=== PATIENT | female | born 1945 | race Caucasian/White ===

== ENCOUNTER → 2019-05-12 | Day surgery (SDC) | payer OTHER ==
[2019-05-10 13:23] LABS: BASOPHILS % 0.4 % (0.0-1.0); EOSINOPHILS # (AUTO) 0.3 (0.0-0.4); EOSINOPHILS % 3.7 % (0.0-6.0); HEMATOCRIT 44.1 % (34.2-44.1); HEMOGLOBIN 13.9 g/dL (12.0-16.0); LYMPHOCYTES # (AUTO) 3.5 (1.0-3.2); LYMPHOCYTES % 41.2 % (18.0-39.1); MEAN CORPUSCULAR HEMOGLOBIN 29.2 pg (28-32); MEAN CORPUSCULAR HGB CONC 31.5 g/dL (31-35); MEAN CORPUSCULAR VOLUME 92.6 fL (81-99); MONOCYTES # (AUTO) 0.7 (0.2-0.8); MONOCYTES % 8.6 % (4.4-11.3); NEUTROPHILS # (AUTO) 3.8 (2.1-6.9); NEUTROPHILS % 45.7 % (38.7-80.0); PLATELET COUNT 211 x10e3/uL (140-360); RED BLOOD COUNT 4.76 x10e6/uL (3.6-5.1); RED CELL DISTRIBUTION WIDTH 15.6 % (11.7-14.4)
[~2019-05-12] MED LIST: DICLOFENAC TOP; FUROSEMIDE40 MG PO; LEVOTHYROXINE112 MCG PO; LIDOCAINE HCL 2% LOCAL INJ 5 ML SDV VIAL INJ ONE; MIDAZOLAM HCL 2 MG/2 ML VIAL ONE; PROPOFOL IV EMULSION 10 MG/ML 20 ML VIAL ONE; TIZANIDINE HCL4 M1 PO
--- OUTSIDE RECORDS SUMMARY | 2019-05-12 07:59 | XMS REPORT ---
Author Author [facility] Address Unknown Phone Unavailable Care Team Providers Care Rust Proofer Name Role Phone Unavailable Unavailable Payers Payer Name Policy Type Policy Number Effective Date Expiration Date Problems This patient has no known problems. Allergies, Adverse Reactions, Alerts This patient has no known allergies or adverse reactions. Medications This patient has no known medications.
--- OUTSIDE RECORDS SUMMARY | 2019-05-12 07:59 | XMS REPORT ---
Author Author [place] Organization [employer] Address Unknown Phone Unavailable Care Team Providers Care Protective Service Specialist Name Role Phone [place] [facility] Unavailable Allergies, Adverse Reactions, Alerts Substance Reaction Event Type Penicillin tingling in hands Drug Allergy Encounters Encounter Location Date joint pain [facility] Jul 23, 2016 Follow up-[facility] Aug 06, 2016 Problems Problem Type Condition ICD-9 Code Onset Dates Condition Status Assessment Osteoarthritis involving multiple joints on both sides of body M15.9 Active Assessment Pain, joint, multiple sites M25.50 Active Problem Osteoarthritis involving multiple joints on both sides of body M15.9 Active Assessment Counseling NOS Z71.9 Active Medications Medication Code System Code Instructions Start Date End Date Status Dosage Advil MEDISPAN [address]-69 200 MG Orally every 6 hrs Active 2 tab(s) as needed [facility] [address]-90 7.5 MG Orally Once a day prn with food Aug 06, 2016 Inactive 1 tablet Furosemide [facility] [address]-52 20 MG Orally Once a day Active 1 tablet as needed Levothyroxine Sodium [facility] [address]-61 112 MCG Orally Once a day Active 1 tablet Magnesium Unknown 0 Oral Once a day Active 50mg - 2 tablets Potassium [facility] [address]-42 99 MG Orally Once a day Active 2 tab(s) Precious-C MEDISPAN [address]-54 Orally Once a day Active 1,000mg Co Q 10 MEDISPAN 363[address]-15016 100 MG Orally Once a day Active 1 capsule with a meal Folic Acid [facility] [address]-40 1 mg Orally Once a day Active 1 tablet Krill Oil Unknown 0 500 MG Orally Active Unknown Social History Social History Element Qualifiers Date Reported Smoking status: . Are you a: Former Smoker quit x 20 years ago Aug 06, 2016 Vital Signs Date/Time: Aug 06, 2016 Height 53.25 in Blood Pressure Diastolic 82 mm Hg Blood Pressure Systolic 145 mm Hg Weight 188 lbs Summary Purpose [employer] Submission
--- OUTSIDE RECORDS SUMMARY | 2019-05-12 07:59 | XMS REPORT | Clinical Summary ---
Author Author [facility] Organization [facility] Address Unknown Phone Unavailable Care Team Providers Care Refining Supervisor Name Role Phone Uche Cabezas MD PCP Unavailable Allergies Comments Active Allergy Reactions Severity Noted Date Pt states "NORCO makes me sick." Hydrocodone-Acetaminophen 05/07/2018 Penicillins 05/06/2018 Medications End Date Status Medication Sig Dispensed Refills Start Date Active levothyroxine (SYNTHROID, 0 LEVOXYL) 112 mcg tablet 8 Active furosemide (LASIX) 20 mg 0 tablet 8 06/06/2018 TiZANidine (ZANAFLEX) 4 Take 1 90 capsule 0 MG capsule capsule (4 mg 8 total) by mouth 3 (three) times a day for 30 days. 06/06/2018 naproxen (NAPROSYN) 500 Take 1 tablet 60 tablet 0 MG tablet (500 mg 8 total) by mouth 2 (two) times a day with meals for 30 days. Active Problems Problem Noted Date Inability to walk 05/06/2018 Encounters Care Team Description Date Type Specialty Foreign Arellano MD 07/30/2018 Telephone Cardiovascular after 05/11/2018 Family History Medical History Relation Name Comments Diabetes Father Hypertension Father Hypertension Mother Cancer Sister Relation Name Status Comments Father Mother Sister Social History Date Tobacco Use Types Packs/Day Years Used Former Smoker Smokeless Tobacco: Never Used Sex Assigned at Date Recorded Not on file Industry Job Start Date Occupation Not on file Not on file Not on file Travel End Travel History Travel Start No recent travel history available. Last Filed Vital Signs Not on file Plan of Treatment Health Maintenance Due Date Last Done Comments COLONOSCOPY SCREENING 1995 SHINGLES VACCINES (#1) 1995 65+ PNEUMOCOCCAL VACCINE 2010 (1 of 2 - PCV13) BREAST CANCER SCREENING 12/12/2018 12/12/2016, 07/10/2014, 01/24/2013 INFLUENZA VACCINE 05/26/2019 Results Not on fileafter 05/11/2018 Insurance Type Payer Benefit Subscriber ID Effective Phone Address Plan / Dates Group HMO [employer] CIGNA xxxxxxxxxxx [id number] [employer] resent NG O MCR ADV Advance Directives Patient has advance care planning documents on file. For more information, anuj anne contact: Tracey Sikh [address] [place] [address]
--- OUTSIDE RECORDS SUMMARY | 2019-05-12 07:59 | XMS REPORT ---
Author Author [facility] [place] Organization [employer] Address Unknown Phone Unavailable Care Team Providers Care Joint Sealer Name Role Phone [facility] CP Unavailable Allergies, Adverse Reactions, Alerts Substance Reaction Event Type Penicillin tingling in hands Drug Allergy Encounters Encounter Location Date joint pain Rheumatology Clinic Jul 23, 2016 Problems Problem Type Condition ICD-9 Code Onset Dates Condition Status Assessment Osteoarthritis involving multiple joints on both sides of body M15.9 Active Assessment Pain, joint, multiple sites M25.50 Active Problem Osteoarthritis involving multiple joints on both sides of body M15.9 Active Assessment Counseling NOS Z71.9 Active Assessment Menopausal and perimenopausal disorder N95.9 Active Medications Medication Code System Code Instructions Start Date End Date Status Dosage Advil MEDISPAN [address]-84 200 MG Orally every 6 hrs Inactive 2 tab(s) as needed Furosemide MEDISPAN [address]-10 20 MG Orally Once a day Active 1 tablet as needed Meloxicam MEDISPAN [address]-01 7.5 MG Orally Once a day prn with food Jul 23, 2016 Oct 21, 2016 Active 1 tablet Levothyroxine Sodium MEDISPAN [address]-92 112 MCG Orally Once a day Active 1 tablet Social History Social History Element Qualifiers Date Reported Smoking status: . Are you a: Former Smoker quit x 20 years ago Jul 23, 2016 Vital Signs Date/Time: Jul 23, 2016 Height 53.25 in Blood Pressure Diastolic 91 mm Hg Blood Pressure Systolic 145 mm Hg Weight 192 lbs Summary Purpose eClinicalWorks Submission
--- OUTSIDE RECORDS SUMMARY | 2019-05-12 07:59 | XMS REPORT | Continuity of Care Document ---
Author Author [email or web address] Address Unknown Phone Unavailable Care Team Providers Care Geospatial Technologist Name Role Phone [email or web address] Unavailable Unavailable Problems Problem Status Onset Date Classification Date Reported Comments Source Osteoarthritis involving multiple joints on both sides of body Active Diagnosis 02/19/2017 [facility] Najam Pain, joint, multiple sites Active Diagnosis 02/19/2017 Bella Najam Counseling NOS Active Diagnosis 02/19/2017 Bella Najam Menopausal and perimenopausal disorder Active Diagnosis 07/24/2016 Bella Najam Medications Medication Details Route Status Patient Instructions Ordering Provider Order Date Source Meloxicam 1 tablet Orally No Longer Active 7.5 MG Orally Once a day prn with food Najam 08/06/2016 Bella Najam Meloxicam 1 tablet Orally Active 7.5 MG Orally Once a day prn with food Najam 07/23/2016 Bella Najam Advil 2 tab(s) as needed Orally Active 200 MG Orally every 6 hrs Najam [facility] Furosemide 1 tablet as needed Orally Active 20 MG Orally Once a day Najam [facility] Levothyroxine Sodium 1 tablet Orally Active 112 MCG Orally Once a day Najam [facility] Magnesium 50mg - 2 tablets Oral Active Oral Once a day Najam [facility] Potassium 2 tab(s) Orally Active 99 MG Orally Once a day Najam [facility] Precious-C 1,000mg Orally Active Orally Once a day Najam [facility] Co Q 10 1 capsule with a meal Orally Active 100 MG Orally Once a day Najam [facility] Folic Acid 1 tablet Orally Active 1 mg Orally Once a day Najam [facility] Krill Oil Unknown Orally Active 500 MG Orally [place] Krill Oil not defined Orally Active 500 MG Orally Naj[facility] Precious-C 1,000mg Orally Active Orally Once a day Najam [facility] Magnesium 50mg - 2 tablets Oral Active Oral Once a day Najam [facility] Folic Acid 1 tablet Orally Active 1 mg Orally Once a day [place] Allergies, Adverse Reactions, Alerts Substance Category Reaction Severity Reaction type Status Date Reported Comments Source Penicillin Adverse Reaction tingling in hands Adverse Reaction Active 02/18/2017 [place] Immunizations No Data Provided for This Section Results No Data Provided for This Section Pathology Reports No Data Provided for This Section Diagnostic Reports No Data Provided for This Section Consultation Notes No Data Provided for This Section Discharge Summaries No Data Provided for This Section History and Physicals No Data Provided for This Section Vital Signs Vital Sign Value Date Comments Source Height 53.25 02/18/2017 [facility] [place] Diastolic (mm Hg) 77 02/18/2017 Bella [place] Systolic (mm Hg) 125 02/18/2017 [place] Weight 190 02/18/2017 [place] Height 53.25 08/06/2016 [place] Diastolic (mm Hg) 82 08/06/2016 Bella Naemmanuellem Systolic (mm Hg) 145 08/06/2016 [place] Weight 188 08/06/2016 [place] Height 53.25 07/23/2016 [place] Diastolic (mm Hg) 91 07/23/2016 Bella Naemmanuellem Systolic (mm Hg) 145 07/23/2016 [place] Weight 192 07/23/2016 [place] Encounters Location Location Details Encounter Type Encounter Number Reason For Visit Attending Provider ADM Date DC Date Status Source Rheumatology Clinic joint pain [id number] 07/23/2016 07/23/2016 [facility] joint pain [id number] 07/23/2016 07/23/2016 [place] [facility] Follow up- Labs [id number] 08/06/2016 08/06/2016 [place] Procedures No Data Provided for This Section Assessment and Plan No Data Provided for This Section Plan of Care No Data Provided for This Section Social History Social History Date Source Social History ElementQualifiersDate Reported Smoking status: . Are you a: Former Smoker quit x 20 years ago Aug 06, 2016 08/06/2016 [place] Family History No Data Provided for This Section Advance Directives No Data Provided for This Section Functional Status No Data Provided for This Section
--- OUTSIDE RECORDS SUMMARY | 2019-05-12 07:59 | XMS REPORT ---
Author Author [place] Organization [employer] Address Unknown Phone Unavailable Care Team Providers Care Valve Machine Operator Name Role Phone [facility] Unavailable Allergies, Adverse Reactions, Alerts Substance Reaction Event Type Penicillin tingling in hands Drug Allergy Problems Problem Type Condition Code Onset Dates Condition Status Assessment Osteoarthritis involving multiple joints on both sides of body M15.9 Active Assessment Pain, joint, multiple sites M25.50 Active Problem Osteoarthritis involving multiple joints on both sides of body M15.9 Active Assessment Counseling NOS Z71.9 Active Medications Medication Code System Code Instructions Start Date End Date Status Dosage Furosemide [facility] [address]-40 20 MG Orally Once a day Active 1 tablet as needed Co Q 10 [facility] [address] 100 MG Orally Once a day Active 1 capsule with a meal Krill Oil [facility] [address]30 500 MG Orally Active not defined Levothyroxine Sodium [facility] [address]-60 112 MCG Orally Once a day Active 1 tablet Precious-C [facility] [address] Orally Once a day Active 1,000mg Potassium [facility] [address]-60 99 MG Orally Once a day Active 2 tab(s) Magnesium ND 0 Oral Once a day Active 50mg - 2 tablets Folic Acid [facility] [address]-82 1 mg Orally Once a day Active 1 tablet Advil [facility] [address]-02 200 MG Orally every 6 hrs Active 2 tab(s) as needed Vital Signs Date/Time: February 18, 2017 Height 53.25 in Blood Pressure Diastolic 77 mm Hg Blood Pressure Systolic 125 mm Hg Weight 190 lbs Results No Known Results Summary Purpose eClinicalWorks Submission
--- OUTSIDE RECORDS SUMMARY | 2019-05-12 07:59 | XMS REPORT | Summary of Care ---
Author Author Vik Hsu M.A. Unknown Address [facility] Phone Unavailable Care Team Providers Care Colored Liquid Plastic Applier Name Role Phone ROSAURA NEGRETE M.D. Unavailable Unavailable RADHA PATTON MD, DONNA Pan Unavailable Unavailable Unavailable Unavailable Functional Status Name Dates Details Functional status health issues are not documented Status: Name Dates Details Cognitive status health issues are not documented Status: Problems Name Dates Details Bursitis of right hip, unspecified bursa (726.5, M70.71) Status: Active Acute back pain with sciatica, unspecified laterality (724.3, M54.40) Status: Active Medications Name Dates Details Meloxicam 7.5 MG Oral Tablet TAKE 1 TABLET BY MOUTH DAILY NEEDED FOR PAIN Quantity: 30 ROSAURA NEGRETE M.D. * Start : 30-Mar-2019 Active Omeprazole 20 MG Oral Capsule Delayed Release TAKE 1 CAPSULE Daily In The Morning 30 minutes prior to antiinflammatory * Quantity: 30 Refills: 3 ROSAURA NEGRETE M.D. * Start : 30-Mar-2019 Active Diclofenac Sodium 1 % Transdermal Gel APPLY 4 GRAMS TOPICALLY TO AFFECTED AREA (LOWER EXTREMITIES) 4 TIMES DAILY. DO N OT APPLY MORE THAN 16 GRAMS DAILY TO ANY ONE AFFECTED JOINT * Quantity: 500 Refills: 3 ROSAURA NEGRETE M.D. * Start : 30-Mar-2019 Active 100 GM Tube Allergies and Adverse Reactions Name Dates Details Allergy history not documented Status: Procedures Procedure Dates Details Procedures not documented Immunization Name Dates Details Immunizations not documented Social History Name Dates Details Unknown if ever smoked Vital Signs Date Test Result Details No Known Vitals to report Results Date Description Value Details Results not documented Plan of Care Name Dates Details Planned Observations Planned Goals not documented Interventions Provided Medication Changes* Diclofenac Sodium 1 % Transdermal Gel - Start * Meloxicam 7.5 MG Oral Tablet - Start * Omeprazole 20 MG Oral Capsule Delayed Release - Start Instructions Name Dates Details Instructions not documented Encounters Appointment; ROSAURA NEGRETE M.D. Encounter Diagnosis: Problem not documented On: 30-Mar-2019 9:15
[2019-05-12 11:50] VITALS: BP 134/82
--- NOTE | 2019-05-12 16:33 | Operative Report ---
DATE OF PROCEDURE: SURGEON: Armond Lucas MD PROCEDURE PERFORMED: Colonoscopy. PREOPERATIVE DIAGNOSIS: Colon cancer screening. POSTOPERATIVE DIAGNOSES: Colon polyps, diverticulosis, and internal hemorrhoids. PREOPERATIVE MEDICATIONS: Consisted of IV sedation administered under MAC anesthesia. PROCEDURE IN DETAIL: Using an [place] video colonoscope was inserted in the patient's rectum and advanced without difficulty to the level of the cecum. Photo documentation was obtained in the cecum. The colonoscope was withdrawn from that level back down to the rectum. In the distal sigmoid colon 2 to 3 mm size polyps were encountered and removed with the hot biopsy forceps. Diverticula were present in the sigmoid as well as in the descending colon. As we withdrew the colonoscope back down to the rectum, internal hemorrhoids were noted. In conclusion, we have findings of colon polyps, diverticulosis, internal hemorrhoids. Armond Lucas MD SAF/MODL /[id number]
== END | disposition home or self-care (01) ==
LOC: OR 07:56
PROVIDERS: ATTEND Internal Medicine Gastroenterology
DX: Z12.11 Encounter for screening for malignant neoplasm of colon (principal); K63.5 Polyp of colon; K57.30 Diverticulosis of large intestine without perforation or abscess without bleeding; K59.00 Constipation, unspecified; K59.8 Other specified functional intestinal disorders; K64.8 Other hemorrhoids; E03.9 Hypothyroidism, unspecified; M19.90 Unspecified osteoarthritis, unspecified site; R60.9 Edema, unspecified; Z88.1 Allergy status to other antibiotic agents; Z88.0 Allergy status to penicillin; Z01.810 Encounter for preprocedural cardiovascular examination; Z01.812 Encounter for preprocedural laboratory examination; Z68.34 Body mass index [BMI] 34.0-34.9, adult; Z87.891 Personal history of nicotine dependence
CPT/HCPCS: 36415; 45384; 85025; 93005; J2001; J2250; J2704